=== PATIENT | male | born 1990 ===

== ENCOUNTER 2018-10-21 18:12 | Emergency (ER) | payer MEDICAID ==
[~2018-10-21] VITALS: Ht 167.6 cm; Wt 94.3 kg
[2018-10-21] MEDS ORDERED: THIAMINE 100MG TABLET PO ONE (19:00)
[2018-10-21] MEDS ORDERED: ONDANSETRON 2MG/ML, 2ML IVPush ONE (19:00)
[2018-10-21] MEDS ORDERED: SODIUM CHLORIDE FLUSH 10ML SYR IVF ONE (19:00)
[2018-10-21] MEDS ORDERED: LORazepam 2 MG/ML, 1ML IVPush ONE ×2 (19:00→20:30)
[2018-10-21 19:06] LABS: BASOPHILS # (AUTO) 0.08 x10^3/uL (0-0.1); BASOPHILS % (AUTO) 1 % (0-1); EOSINOPHILS # (AUTO) 0.03 x10^3/uL (0-0.4); EOSINOPHILS % (AUTO) 0 % (1-7); LYMPHOCYTES # (AUTO) 3.06 x10^3/uL (1-3.4); LYMPHOCYTES % (AUTO) 34 % (22-44); MD NO; MEAN CORPUSCULAR HEMOGLOBIN 28.4 pg (27.5-34.5); MEAN CORPUSCULAR HGB CONC 33.9 g/dL (33.2-36.2); MEAN CORPUSCULAR VOLUME 83.7 fL (81-97); MEAN PLATELET VOLUME 6.7 fL (7.4-10.4); MONOCYTES # (AUTO) 0.67 x10^3/uL (0.2-0.8); MONOCYTES % (AUTO) 8 % (2-9); NEUTROPHILS # (AUTO) 5.05 x10^3/uL (1.8-6.8); NEUTROPHILS % (AUTO) 57 % (42-75); PLATELET COUNT 412 x10^3/uL (130-400); RED BLOOD COUNT 6.09 x10^6/uL (4.38-5.82); RED CELL DISTRIBUTION WIDTH 14.4 % (9.4-14.8)
[2018-10-21] MEDS ORDERED: LORazepam 2 MG/ML, 1ML ONE ×2 (19:16→20:11)
[2018-10-21] MEDS ORDERED: ONDANSETRON 2MG/ML, 2ML ONE (19:16)
[2018-10-21] MEDS ORDERED: THIAMINE 100MG TABLET ONE (19:16)
[2018-10-21 19:18] LABS: ALANINE AMINOTRANSFERASE 149 U/L (12-78); ALBUMIN 4.2 g/dL (3.4-5.0); ANION GAP 7 mmol/L (5-15); CALCIUM 8.6 mg/dL (8.5-10.1); CHLORIDE 106 mmol/L (98-107); CREATININE 1.01 mg/dL (0.7-1.3)
[2018-10-21 19:20] LABS: ALKALINE PHOSPHATASE 83 U/L (45-117); BILIRUBIN,TOTAL 0.4 mg/dL (0.2-1.0); TOTAL PROTEIN 8.7 g/dL (6.4-8.2)
--- NOTE | 2018-10-21 19:23 | NUR ---
SPOKE W/ KAREN NARAYAN WHO STATES OKAY TO GIVE 2 MG IV ATIVAN IF PT AGITATED. PT EXTREMELY AGITATED AT THIS TIME.
--- NOTE | 2018-10-21 19:37 | NUR ---
PT AMBULATORY TO ROOM T1 W/ C/O ETOH ABUSE X 5 DAYS. LAST DRINK AT 1700 TODAY. PT STATES SOBER X 6 MONTHS AND HAS HX ETOH ABUSE IN THE PAST. PT C/O BEING ANXIOUS AND IS NOTABLY AGITATED AND SHAKY. MEDICATED PER DEC. MONITORS APPLIED. EKG COMPLETED.
--- NOTE | 2018-10-21 19:56 | NUR ---
PT RESTING ON GURNEY. NADN. BRIGHT.
--- NOTE | 2018-10-21 20:07 | NUR ---
PT C/O RLQ ABD PAIN TENDER TO TOUCH. PT VERBALIZES IT STARTED 20 MIN AGO AND STATES "MY ANXIETY IS REALLY BAD RIGHT NOW". EDPA NOTIFIED.
[2018-10-21] MEDS ORDERED: MAALOX/HYOSCYAMINE/LIDOCAINE 45 ML BTL ONE (20:16)
[2018-10-21] MEDS ORDERED: MAALOX/HYOSCYAMINE/LIDOCAINE 45 ML BTL PO ONE (20:30)
--- NOTE | 2018-10-21 20:37 | NUR ---
PT RESTING ON GURNEY. NADN. BRIGHT.
[2018-10-21 20:45] LABS: MICROSCOPIC NOT IND
[2018-10-21 20:52] LABS: CULTURE INDICATED? NO
--- NOTE | 2018-10-21 21:00 | NUR ---
CHART REVIEWED AND PLACED FOR RECHECK.
--- NOTE | 2018-10-21 21:01 | NUR ---
REPORT GIVEN TO LUCIA THOMASON.
--- NOTE | 2018-10-21 21:31 | NUR ---
PT UP FOR RECHECK AT THIS TIME.
[2018-10-21] MEDS ORDERED: DIAZEPAM 5 MG TABLET PO ONE (22:00)
[2018-10-21] MEDS ORDERED: DIAZEPAM 5 MG TABLET ONE (22:02)
[2018-10-21 22:47] VITALS: BP 129/78
== END 2018-10-21 23:22 | disposition home or self-care (01) ==
LOC: ED 20:33
DX: R10.13 Epigastric pain (principal); R10.31 Right lower quadrant pain; F41.1 Generalized anxiety disorder; Z87.19 Personal history of other diseases of the digestive system
CPT/HCPCS: 36415; 80053; 81003; 83690; 85025; 93005; 96374; 96375; 96376; 99284; J2060; J2405

== ENCOUNTER 2019-03-19 14:21 | Emergency (ER) | payer MEDICAID ==
[~2019-03-19] VITALS: Ht 167.6 cm; Wt 82.0 kg
[2019-03-19] MEDS ORDERED: DULO60CA7 PO (15:20)
--- NOTE | 2019-03-19 15:26 | NUR ---
PT VOIDING AT BEDSIDE AT THIS TIME. COMPLAINING OF ANXIETY. TEARFUL. MOTHER AT BEDSIDE.
[2019-03-19] MEDS ORDERED: ONDANSETRON 2MG/ML, 2ML ONE (15:27)
[2019-03-19] MEDS ORDERED: MORPHINE SULFATE 4 MG/ML, 1ML ONE ×2 (15:28→16:25)
[2019-03-19] MEDS ORDERED: ONDANSETRON 2MG/ML, 2ML IVPush ONE (15:30)
[2019-03-19] MEDS ORDERED: SODIUM CHLORIDE FLUSH 10ML SYR IVF ONE (15:30)
[2019-03-19 15:32] LABS: BASOPHILS # (AUTO) 0.07 x10^3/uL (0-0.1); BASOPHILS % (AUTO) 1 % (0-1); EOSINOPHILS # (AUTO) 0.01 x10^3/uL (0-0.4); EOSINOPHILS % (AUTO) 0 % (1-7); LYMPHOCYTES # (AUTO) 3.13 x10^3/uL (1-3.4); LYMPHOCYTES % (AUTO) 26 % (22-44); MD NO; MEAN CORPUSCULAR HEMOGLOBIN 27.7 pg (27.5-34.5); MEAN CORPUSCULAR HGB CONC 32.8 g/dL (33.2-36.2); MEAN CORPUSCULAR VOLUME 84.2 fL (81-97); MEAN PLATELET VOLUME 6.5 fL (7.4-10.4); MONOCYTES % (AUTO) 4 % (2-9); NEUTROPHILS # (AUTO) 8.42 x10^3/uL (1.8-6.8); NEUTROPHILS % (AUTO) 69 % (42-75); PLATELET COUNT 404 x10^3/uL (130-400); RED BLOOD COUNT 5.78 x10^6/uL (4.38-5.82); RED CELL DISTRIBUTION WIDTH 15.9 % (9.4-14.8)
[2019-03-19 15:41] LABS: ALANINE AMINOTRANSFERASE 72 U/L (12-78); ALBUMIN 4.2 g/dL (3.4-5.0); ANION GAP 10 mmol/L (5-15); CALCIUM 8.5 mg/dL (8.5-10.1); CHLORIDE 107 mmol/L (98-107); CREATININE 1.04 mg/dL (0.7-1.3)
[2019-03-19 15:43] LABS: ALKALINE PHOSPHATASE 84 U/L (45-117); BILIRUBIN,TOTAL 0.3 mg/dL (0.2-1.0); TOTAL PROTEIN 8.3 g/dL (6.4-8.2)
[2019-03-19] MEDS: MORPHINE SULFATE 4 MG/ML, 1ML IVPush PRN ×2 (15:49→16:26)
[2019-03-19 15:56] LABS: MICROSCOPIC NOT IND
[2019-03-19 15:59] LABS: CULTURE INDICATED? NO
--- NOTE | 2019-03-19 16:01 | NUR ---
IV IN PLACE. PT MEDICATED. CALL LIGHT IN REACH.
--- NOTE | 2019-03-19 16:22 | NUR ---
PATIENT WOULD LIKE MORE PAIN MEDICATION
--- NOTE | 2019-03-19 16:29 | NUR ---
PT COMPLAINING OF 8/10 PAIN AT THIS TIME. MEDICATED PER EMAR. WILL CONTINUE TO MONITOR.
--- NOTE | 2019-03-19 16:33 | NUR ---
ORDERED 1L BOLUS AT THIS TIME.
[2019-03-19] MEDS ORDERED: METOCLOPRAMIDE 5 MG/ML, 2ML ONE (16:44)
[2019-03-19] MEDS ORDERED: LORazepam 2 MG/ML, 1ML ONE (16:45)
--- NOTE | 2019-03-19 16:53 | NUR ---
MEDICATED PATIENT PER EMAR. PT RESTING IN BED. NO COMPLAINTS OF NAUSEA AT THIS TIME. BOLUS INFUSING. WILL CONINTUE TO MONITOR.
[2019-03-19] MEDS ORDERED: METOCLOPRAMIDE 5 MG/ML, 2ML IVPush ONE (17:00)
[2019-03-19] MEDS ORDERED: LORazepam 2 MG/ML, 1ML IVPush ONE (17:00)
[2019-03-19] MEDS ORDERED: SODIUM CHLORIDE 0.9% 1,000ML IVBOLUS ONE ×2 (17:00)
--- NOTE | 2019-03-19 17:20 | NUR ---
MD AT BEDSIDE. EXPLAINED POC TO PT AND PT'S MOTHER. PLAN TO FINISH BOLUS AND THEN DISCHARGE.
--- NOTE | 2019-03-19 17:33 | NUR ---
PT'S RA SAT 84% AT 1700. PUT ON 2L NC AND SAT WENT UP TO 97%. AT 1720 PT FOUND TO BE ON RA AND SAT WAS 97%. PT CURRENTLY ON RA WITH SATURATION OF 91%. FLUID BOLUS BEING GIVEN. WILL CONTINUE TO MONITOR.
--- NOTE | 2019-03-19 17:39 | NUR ---
BOLUS INFUSED. PT RESTING. MOTHER AT BEDSIDE.
[2019-03-19 17:44] VITALS: BP 119/81
== END 2019-03-19 17:56 | disposition home or self-care (01) ==
LOC: ED 15:07
DX: R10.11 Right upper quadrant pain (principal); I10 Essential (primary) hypertension
CPT/HCPCS: 36415; 76700; 80053; 81003; 83690; 85025; 96361; 96374; 96375; 96376; 99284; J2060; J2270; J2405; J2765; J7030

== ENCOUNTER 2019-03-20 00:06 | Inpatient (IN) | payer MEDICAID ==
[~2019-03-20] VITALS: Ht 167.6 cm; Wt 96.8 kg
[~2019-03-20 00:06] MED LIST: DULO60CA7 PO
[2019-03-20] MEDS ORDERED: ONDANSETRON 2MG/ML, 2ML IVPush ONE (01:00)
--- NOTE | 2019-03-20 01:18 | NUR ---
THIS IS 28 Y/O MALE THAT PRESENTS TO ED AGAIN TODAY WITH LOWER ABD PAIN AND SEVERE GAURDIGN AND TENDERNESS. PT REPORTS THAT IT IS DIFFICULT TO DO ANYTHING THE PAIN IS MAKING HER VERY ANXIOUS. PT DENIES ANY TRAUMA. PT REPORTS THAT THE PAIN MEDICATIONS SHE RECIEVED EARLIER DID HELP. PT CONNECTED TO MONITORS AND CALL LIGHT IN REACH. AWAITING FURTHER ORDERS.
--- NOTE | 2019-03-20 01:21 | NUR ---
EMTA AT THIS TIME ATTMEPTING PIV.
[2019-03-20] MEDS ORDERED: ONDANSETRON 2MG/ML, 2ML ONE (01:26)
[2019-03-20] MEDS ORDERED: MORPHINE SULFATE 4 MG/ML, 1ML ONE ×2 (01:26→02:29)
[2019-03-20 01:30] LABS: BASOPHILS # (AUTO) 0.07 x10^3/uL (0-0.1); BASOPHILS % (AUTO) 1 % (0-1); EOSINOPHILS # (AUTO) 0.04 x10^3/uL (0-0.4); EOSINOPHILS % (AUTO) 0 % (1-7); LYMPHOCYTES # (AUTO) 3.85 x10^3/uL (1-3.4); LYMPHOCYTES % (AUTO) 30 % (22-44); MD NO; MEAN CORPUSCULAR HEMOGLOBIN 27.9 pg (27.5-34.5); MEAN CORPUSCULAR HGB CONC 32.7 g/dL (33.2-36.2); MEAN CORPUSCULAR VOLUME 85.2 fL (81-97); MEAN PLATELET VOLUME 6.7 fL (7.4-10.4); MONOCYTES # (AUTO) 0.97 x10^3/uL (0.2-0.8); MONOCYTES % (AUTO) 8 % (2-9); NEUTROPHILS # (AUTO) 7.81 x10^3/uL (1.8-6.8); NEUTROPHILS % (AUTO) 61 % (42-75); PLATELET COUNT 376 x10^3/uL (130-400); RED BLOOD COUNT 5.55 x10^6/uL (4.38-5.82); RED CELL DISTRIBUTION WIDTH 15.9 % (9.4-14.8)
[2019-03-20 01:40] LABS: ALANINE AMINOTRANSFERASE 75 U/L (12-78); ALBUMIN 3.7 g/dL (3.4-5.0); ANION GAP 9 mmol/L (5-15); CALCIUM 7.6 mg/dL (8.5-10.1); CHLORIDE 110 mmol/L (98-107); CREATININE 1.01 mg/dL (0.7-1.3)
[2019-03-20 01:42] LABS: ALKALINE PHOSPHATASE 77 U/L (45-117); BILIRUBIN,TOTAL 0.2 mg/dL (0.2-1.0); TOTAL PROTEIN 7.6 g/dL (6.4-8.2)
[2019-03-20] MEDS: MORPHINE SULFATE 4 MG/ML, 1ML IVPush PRN ×2 (02:03→03:12)
[2019-03-20] MEDS ORDERED: OMNIPAQUE 350 MG/ML, 100ML BOTTLE ONE (02:15)
[2019-03-20] MEDS ORDERED: SODIUM CHLORIDE 0.9% 1,000ML IVBOLUS ONE (03:00)
--- NOTE | 2019-03-20 03:13 | NUR ---
PT MEDICATED FOR PAINX2, PT INFORMED THAT PAIN MEDICATION HAS TO BE GIVEN PER SCHEDULE FOR SAFETY. PT GIVEN NON PHARMCOLOGICAL PAIN RELIEF ALTERNATIVES. PT DOES NOT WANT TO TRY THEM. PT AGGRESSIVE TOWARDS RN. VSS
--- NOTE | 2019-03-20 03:18 | NUR ---
REPORT CALLED TO BROOKS MYERS
[2019-03-20 03:35] VITALS: BP 109/66
[2019-03-20] MEDS ORDERED: ONDANSETRON 2MG/ML, 2ML IVPush PRN (04:00)
[2019-03-20] MEDS: SODIUM CHLORIDE 0.9% 1,000 ML IV SCH ×2 (04:08→14:00)
[2019-03-20] MEDS: morphine SULFATE 10 MG/ML, 1ML IVPush PRN ×5 (06:58→20:08)
[2019-03-20 07:10] VITALS: BP 116/75
[2019-03-20] MEDS: PANTOPRAZOLE 40 MG IV IVPush SCH (08:51)
[2019-03-20 10:32] LABS: ALBUMIN 3.8 g/dL (3.4-5.0)
[2019-03-20 10:35] LABS: ALANINE AMINOTRANSFERASE 68 U/L (12-78); ALKALINE PHOSPHATASE 78 U/L (45-117); BILIRUBIN, DIRECT 0.2 mg/dL (0.1-0.2); BILIRUBIN,INDIRECT 0.4 mg/dL (0.0-2.0); BILIRUBIN,TOTAL 0.6 mg/dL (0.2-1.0); CHOL/HDL RATIO 2.2; CHOLESTEROL, TOTAL 120 mg/dL (140-239); HDL CHOL % 46 % (26-37); HDL CHOLESTEROL (DIRECT) 55 mg/dL (40-60); LDL CHOLESTEROL,CALCULATED 34 mg/dL (54-169); LDL/HDL RATIO 0.6 (0.5-3.0); TOTAL PROTEIN 7.5 g/dL (6.4-8.2); TRIGLYCERIDES 155 mg/dL (50-200); VLDL CHOLESTEROL 31 mg/dL (0-25)
[2019-03-20 10:37] LABS: C-REACTIVE PROTEIN, QUANT < 0.02 mg/dL (0.02-0.49)
[2019-03-20 14:00] VITALS: BP 128/71
[2019-03-20] MEDS: LORazepam 1MG TABLET PO PRN ×2 (18:05→22:15)
[2019-03-20 20:28] VITALS: BP 149/89
[2019-03-20 20:36] LABS: MICROSCOPIC NOT IND
[2019-03-20 20:39] LABS: CULTURE INDICATED? NO
[2019-03-21] MEDS: SODIUM CHLORIDE 0.9% 1,000 ML IV SCH ×4 (00:06→23:16)
[2019-03-21 01:29] VITALS: BP 115/72
[2019-03-21 05:03] LABS: BASOPHILS # (AUTO) 0.03 x10^3/uL (0-0.1); BASOPHILS % (AUTO) 0 % (0-1); EOSINOPHILS # (AUTO) 0.15 x10^3/uL (0-0.4); EOSINOPHILS % (AUTO) 2 % (1-7); LYMPHOCYTES # (AUTO) 2.15 x10^3/uL (1-3.4); LYMPHOCYTES % (AUTO) 27 % (22-44); MD NO; MEAN CORPUSCULAR HEMOGLOBIN 28.2 pg (27.5-34.5); MEAN CORPUSCULAR HGB CONC 33.6 g/dL (33.2-36.2); MEAN PLATELET VOLUME 6.8 fL (7.4-10.4); MONOCYTES % (AUTO) 10 % (2-9); NEUTROPHILS # (AUTO) 4.86 x10^3/uL (1.8-6.8); NEUTROPHILS % (AUTO) 61 % (42-75); PLATELET COUNT 301 x10^3/uL (130-400); RED BLOOD COUNT 5.07 x10^6/uL (4.38-5.82); RED CELL DISTRIBUTION WIDTH 15.4 % (9.4-14.8)
[2019-03-21 05:09] LABS: ANION GAP 7 mmol/L (5-15); CALCIUM 8.4 mg/dL (8.5-10.1); CHLORIDE 106 mmol/L (98-107)
[2019-03-21 07:06] VITALS: BP 119/78
[2019-03-21] MEDS: PANTOPRAZOLE 40 MG IV IVPush SCH (08:45)
[2019-03-21] MEDS: morphine SULFATE 10 MG/ML, 1ML IVPush PRN ×5 (09:25→23:09)
[2019-03-21 14:10] VITALS: BP 150/93
[2019-03-21] MEDS: LORazepam 1MG TABLET PO PRN ×2 (14:12→23:09)
[2019-03-21 19:31] VITALS: BP 135/87
[2019-03-22 03:21] VITALS: BP 129/72
[2019-03-22 06:52] VITALS: BP 110/71
[2019-03-22] MEDS: PANTOPRAZOLE 40 MG IV IVPush SCH (07:53)
[2019-03-22] MEDS: SODIUM CHLORIDE 0.9% 1,000 ML IV SCH (07:56)
[2019-03-22] MEDS: morphine SULFATE 10 MG/ML, 1ML IVPush PRN (10:29)
[2019-03-22] MEDS: LORazepam 1MG TABLET PO PRN (11:42)
[2019-03-22 14:08] VITALS: BP 133/85
[2019-03-22] MEDS ORDERED: OMEP20CA14 PO (16:09)
[2019-03-22] MEDS ORDERED: LACT1TAB13 PO (16:10)
== END 2019-03-22 16:33 | disposition home or self-care (01) | DRG 439 ==
LOC: ED 02:46 → EDIP 03:19 → 3NE 03:42 → DCLOUNGE 03-22 16:25
PROVIDERS: ADMIT Internal Medicine; ATTEND Internal Medicine
DX: K85.00 Idiopathic acute pancreatitis without necrosis or infection (principal); E87.2 Acidosis; F32.9 Major depressive disorder, single episode, unspecified; F41.1 Generalized anxiety disorder; F64.9 Gender identity disorder, unspecified; G89.29 Other chronic pain; I10 Essential (primary) hypertension; K29.70 Gastritis, unspecified, without bleeding; K58.0 Irritable bowel syndrome with diarrhea; M32.9 Systemic lupus erythematosus, unspecified; Z79.899 Other long term (current) drug therapy
CPT/HCPCS: 36415; 74177; 80048; 80053; 80061; 80076; 81003; 82150; 83605; 83690; 84443; 85025; 86140; 87040; 96374; 96375; 99285; G0378; J2405; Q9967; C9113; J2270; J7030

== ENCOUNTER 2019-05-08 16:57 | Emergency (ER) | payer MEDICAID ==
[~2019-05-08] VITALS: Ht 167.6 cm; Wt 98.0 kg
[~2019-05-08 16:57] MED LIST changes: +LACT1TAB13 PO; +OMEP20CA14 PO
[2019-05-08 17:01] VITALS: BP 128/83
[2019-05-08] MEDS ORDERED: DIAZEPAM 5 MG TABLET ONE (17:36)
[2019-05-08] MEDS ORDERED: KETOROLAC 30 MG/1 ML ONE (17:36)
[2019-05-08] MEDS ORDERED: DIAZEPAM 5 MG TABLET PO ONE (18:00)
[2019-05-08] MEDS ORDERED: KETOROLAC 60 MG/2 ML IM ONE (18:00)
[2019-05-08] MEDS ORDERED: KETOROLAC 30 MG/1 ML IM ONE (18:00)
--- NOTE | 2019-05-08 18:11 | NUR ---
DC EDUCATION PROVIDED, PT DEMONSTRATES UNDERSTANDING. PT AMBULATED STEADILY TO DC WITH RN. MOTHER TO TRANSPORT PT HOME
== END 2019-05-08 18:12 | disposition home or self-care (01) ==
LOC: ED 17:45
DX: S46.912A Strain of unspecified muscle, fascia and tendon at shoulder and upper arm level, left arm, initial encounter (principal); M25.512 Pain in left shoulder; F41.1 Generalized anxiety disorder; I10 Essential (primary) hypertension; X58.XXXA Exposure to other specified factors, initial encounter; Y93.89 Activity, other specified; Y92.89 Other specified places as the place of occurrence of the external cause; Y99.8 Other external cause status
CPT/HCPCS: 73030; 96372; 99283; J1885

== ENCOUNTER 2019-09-10 16:09 | Emergency (ER) | payer MEDICAID ==
[~2019-09-10] VITALS: Ht 167.6 cm; Wt 103.1 kg
[2019-09-10 16:11] VITALS: BP 143/89
--- NOTE | 2019-09-10 18:05 | NUR ---
Patient/Caregiver given discharge instructions and they have confirmed that they understand the instructions. Patient ambulatory with steady gait.
== END 2019-09-10 18:07 | disposition home or self-care (01) ==
LOC: ED 16:51
DX: M79.662 Pain in left lower leg (principal); M25.572 Pain in left ankle and joints of left foot; Z87.19 Personal history of other diseases of the digestive system
CPT/HCPCS: 99284

== ENCOUNTER 2019-09-23 18:02 | Emergency (ER) | payer MEDICAID ==
[~2019-09-23] VITALS: Ht 167.6 cm; Wt 102.2 kg
[2019-09-23] MEDS ORDERED: KETOROLAC 30 MG/1 ML IM ONE (20:00)
--- NOTE | 2019-09-23 20:00 | NUR ---
pt called to room from lobby, not in lobby
--- NOTE | 2019-09-23 20:10 | NUR ---
called pt to room from lobby, not there
--- NOTE | 2019-09-23 20:22 | NUR ---
pt left at reg desk signed ama
== END 2019-09-23 20:28 | disposition left against medical advice (07) ==
LOC: ED 20:22
DX: R51 Headache (principal); M25.511 Pain in right shoulder; M54.2 Cervicalgia
CPT/HCPCS: 99281

== ENCOUNTER 2019-10-07 14:20 | Emergency (ER) | payer MEDICAID ==
[~2019-10-07] VITALS: Ht 167.6 cm; Wt 99.2 kg
[2019-10-07 14:42] VITALS: BP 138/83
--- NOTE | 2019-10-07 15:30 | NUR ---
PIV PLACED-FROM WHICH LABS WERE DRAWN US IN LABS
[2019-10-07 15:33] LABS: MICROSCOPIC NOT IND
[2019-10-07] MEDS ORDERED: DULO30CA44 PO (15:34)
[2019-10-07] MEDS ORDERED: CEFD300C37 PO (15:34)
[2019-10-07] MEDS ORDERED: LORA10CA PO (15:35)
[2019-10-07 15:36] LABS: BASOPHILS # (AUTO) 0.06 x10^3/uL (0-0.1); BASOPHILS % (AUTO) 1 % (0-1); EOSINOPHILS % (AUTO) 1 % (1-7); LYMPHOCYTES # (AUTO) 2.86 x10^3/uL (1-3.4); LYMPHOCYTES % (AUTO) 34 % (22-44); MD NO; MEAN CORPUSCULAR HGB CONC 33.4 g/dL (33.2-36.2); MEAN PLATELET VOLUME 6.9 fL (7.4-10.4); MONOCYTES # (AUTO) 0.64 x10^3/uL (0.2-0.8); MONOCYTES % (AUTO) 8 % (2-9); NEUTROPHILS # (AUTO) 4.77 x10^3/uL (1.8-6.8); NEUTROPHILS % (AUTO) 57 % (42-75); PLATELET COUNT 270 x10^3/uL (130-400); RED BLOOD COUNT 5.79 x10^6/uL (4.38-5.82); RED CELL DISTRIBUTION WIDTH 14.8 % (9.4-14.8)
[2019-10-07 15:47] LABS: CULTURE INDICATED? NO
[2019-10-07 15:47] LABS: ALANINE AMINOTRANSFERASE 78 U/L (12-78); ALBUMIN 3.9 g/dL (3.4-5.0); ANION GAP 8 mmol/L (5-15); CALCIUM 8.4 mg/dL (8.5-10.1); CHLORIDE 107 mmol/L (98-107); CREATININE 0.89 mg/dL (0.7-1.3)
[2019-10-07 15:49] LABS: ALKALINE PHOSPHATASE 92 U/L (45-117); BILIRUBIN,TOTAL 0.5 mg/dL (0.2-1.0); TOTAL PROTEIN 8.2 g/dL (6.4-8.2)
--- NOTE | 2019-10-07 16:51 | NUR ---
With reassessment patient not found in room. Discharge Registration staff reports they saw her leave
--- NOTE | 2019-10-07 16:59 | NUR ---
Outcomes Analyst called patient to assure piv was removed. patient reports they removed piv prior to leaving (did not sign d/c paperwork.) But provider reports he reviewed testing results with patient 15-20 minutes ago so patient knowledgeable on poc
== END 2019-10-07 17:01 | disposition home or self-care (01) ==
LOC: ED 16:03
DX: R10.9 Unspecified abdominal pain (principal); M54.5 Low back pain; R11.10 Vomiting, unspecified; I10 Essential (primary) hypertension
CPT/HCPCS: 36415; 80053; 81003; 85025; 93005; 99284

== ENCOUNTER 2020-03-16 13:49 | Emergency (ER) | payer MEDICAID ==
[~2020-03-16] VITALS: Ht 167.6 cm; Wt 96.8 kg
[~2020-03-16 13:49] MED LIST changes: +CEFD300C37 PO; +DULO30CA44 PO; +LORA10CA PO; -OMEP20CA14 PO; +OMEP20CA20 PO
--- NOTE | 2020-03-16 14:37 | NUR ---
PT PRESENTING TO ER FOR SWOLLEN, RED, PAINFUL RIGHT ANKLE, STS STARTING LAST 24 HOURS. NO INJURY NOTED. IN NOV ADMITTED FOR PE BUT NOT SENT HOME ON ANTICOAGULANT MEDS PER PT. VSS AT THIS TIME. CALL LIGHT WITHIN REACH. AWAITING MD ASSESSMENT AND ORDERS
[2020-03-16] MEDS ORDERED: KETOROLAC 60 MG/2 ML ONE (15:23)
[2020-03-16] MEDS ORDERED: KETOROLAC 30 MG/1 ML IM ONE (15:30)
[2020-03-16 15:54] LABS: BASOPHILS # (AUTO) 0.04 x10^3/uL (0-0.1); BASOPHILS % (AUTO) 0 % (0-1); EOSINOPHILS # (AUTO) 0.41 x10^3/uL (0-0.4); EOSINOPHILS % (AUTO) 4 % (1-7); LYMPHOCYTES # (AUTO) 2.55 x10^3/uL (1-3.4); LYMPHOCYTES % (AUTO) 25 % (22-44); MD NO; MEAN CORPUSCULAR HEMOGLOBIN 26.6 pg (27.5-34.5); MEAN CORPUSCULAR HGB CONC 32.6 g/dL (33.2-36.2); MEAN CORPUSCULAR VOLUME 81.7 fL (81-97); MONOCYTES # (AUTO) 0.87 x10^3/uL (0.2-0.8); MONOCYTES % (AUTO) 9 % (2-9); NEUTROPHILS # (AUTO) 6.32 x10^3/uL (1.8-6.8); NEUTROPHILS % (AUTO) 62 % (42-75); PLATELET COUNT 350 x10^3/uL (130-400); RED BLOOD COUNT 5.63 x10^6/uL (4.38-5.82); RED CELL DISTRIBUTION WIDTH 14.4 % (9.4-14.8)
[2020-03-16] MEDS ORDERED: HYDROcodone/APAP 5/325 TABLET ONE (16:00)
[2020-03-16] MEDS ORDERED: HYDROcodone/APAP 5/325 TABLET PO ONE (16:01)
[2020-03-16 16:04] LABS: ALBUMIN 3.5 g/dL (3.4-5.0); ANION GAP 5 mmol/L (5-15); CALCIUM 8.8 mg/dL (8.5-10.1); CHLORIDE 105 mmol/L (98-107); CREATININE 0.94 mg/dL (0.7-1.3)
--- NOTE | 2020-03-16 16:08 | NUR ---
PT STS PAIN NOT HELPED MUCH AFTER MD KIRA UPDATED. ADDITIONAL MEDS GIVEN. PT STS MOM IN CAR TO TAKE PT HOME UPON DC. CALL LIGHT WITHIN REACH. AWAITING LAB RESULTS AND DISPO AT THIS TIME
[2020-03-16 16:12] VITALS: BP 114/83
--- NOTE | 2020-03-16 16:13 | NUR ---
ALL RESULTS BACK AT THIS TIME, CHART UP FOR RECHECK
--- NOTE | 2020-03-16 16:16 | NUR ---
TO BEDSIDE FOR RECHECK
== END 2020-03-16 16:37 | disposition home or self-care (01) ==
LOC: ED 16:30
DX: L03.115 Cellulitis of right lower limb (principal); Z87.891 Personal history of nicotine dependence
CPT/HCPCS: 36415; 73610; 80048; 82040; 84550; 85025; 93971; 96372; 99285; J1885

== ENCOUNTER 2020-03-23 17:07 | Emergency (ER) | payer MEDICAID ==
[~2020-03-23] VITALS: Ht 167.6 cm; Wt 93.0 kg
[2020-03-23 17:27] VITALS: BP 129/70
--- NOTE | 2020-03-23 17:40 | NUR ---
FIRST CONTACT WITH PT. PT HERE LAST SAT FOR R ANKLE CELLULITIS AND UNRESOLVED. PT'S AOX4. RESPS EVEN AND UNLABORED.
[2020-03-23] MEDS ORDERED: KETOROLAC 30 MG/1 ML IM ONE (18:30)
[2020-03-23] MEDS ORDERED: KETOROLAC 30 MG/1 ML ONE (18:44)
--- NOTE | 2020-03-23 18:50 | NUR ---
PT MEDICATED PER EMAR. PT TOLERATED WELL.
--- NOTE | 2020-03-23 19:08 | NUR ---
Patient given discharge instructions and they have confirmed that they understand the instructions. Patient ambulatory with steady gait.
== END 2020-03-23 19:09 | disposition home or self-care (01) ==
LOC: ED 17:37
DX: L03.115 Cellulitis of right lower limb (principal); M25.571 Pain in right ankle and joints of right foot; M25.471 Effusion, right ankle; I10 Essential (primary) hypertension; Z87.891 Personal history of nicotine dependence
CPT/HCPCS: 96372; 99283; J1885

== ENCOUNTER 2020-09-10 19:27 | Emergency (ER) | payer MEDICAID ==
[~2020-09-10] VITALS: Ht 167.6 cm; Wt 91.2 kg
--- NOTE | 2020-09-10 19:56 | NUR ---
PT BIB POV. PT REPORTS CHEST PAIN X 24 HOURS, "I FEEL LIKE I PULLED A MUSCLE IN MY CHEST". INCREASED PAIN WITH MOVEMENT OF L ARM. PT DENIES INJURY/SOB/PRODUCTIVE COUGH. PT RESTING GURNEY, NO NEEDS AT THIS TIME, NAD NOTED, WILL CONTINUE TO MONITOR.
[2020-09-10] MEDS ORDERED: KETOROLAC 30 MG/1 ML IM ONE ×2 (20:00→20:30)
[2020-09-10] MEDS ORDERED: CYCLOBENZAPRINE 10 MG TABLET PO ONE (20:00)
[2020-09-10] MEDS ORDERED: KETOROLAC 30 MG/1 ML ONE (20:01)
[2020-09-10] MEDS ORDERED: CYCLOBENZAPRINE 10 MG TABLET ONE (20:01)
[2020-09-10 20:55] LABS: BASOPHILS % (AUTO) 1 % (0-1); EOSINOPHILS % (AUTO) 1 % (1-7); LYMPHOCYTES % (AUTO) 30 % (22-44); MEAN CORPUSCULAR HEMOGLOBIN 26.7 pg (27.5-34.5); MEAN CORPUSCULAR HGB CONC 32.9 g/dL (33.2-36.2); MEAN PLATELET VOLUME 6.8 fL (7.4-10.4); MONOCYTES % (AUTO) 10 % (2-9); NEUTROPHILS % (AUTO) 58 % (42-75); PLATELET COUNT 393 x10^3/uL (130-400); RED BLOOD COUNT 4.62 x10^6/uL (4.38-5.82); RED CELL DISTRIBUTION WIDTH 15.2 % (9.4-14.8)
[2020-09-10 21:00] LABS: ALBUMIN 3.6 g/dL (3.4-5.0); ANION GAP 4 mmol/L (5-15); CALCIUM 8.7 mg/dL (8.5-10.1); CHLORIDE 112 mmol/L (98-107); CREATININE 0.94 mg/dL (0.7-1.3)
[2020-09-10 21:04] LABS: TROPONIN I < 0.015 ng/mL (0.000-0.045)
[2020-09-10 21:20] LABS: MD NO
[2020-09-10 21:55] VITALS: BP 113/72
== END 2020-09-10 21:58 | disposition home or self-care (01) ==
LOC: ED 20:57
DX: N18.9 Chronic kidney disease, unspecified (principal); D64.9 Anemia, unspecified; R25.2 Cramp and spasm; I10 Essential (primary) hypertension; R00.0 Tachycardia, unspecified; R07.89 Other chest pain
CPT/HCPCS: 36415; 71046; 80048; 82040; 84484; 85025; 85379; 93005; 96372; 99285; J1885

== ENCOUNTER 2020-10-23 15:42 | Emergency (ER) | payer MEDICAID ==
[~2020-10-23] VITALS: Ht 167.6 cm; Wt 87.3 kg
--- NOTE | 2020-10-23 16:20 | NUR ---
This RN visited with pt.'s mom outside of pt.'s room. Pt.'s mom states pt. has been in and out of rehab centers and has recently been binge drinking again. Pt.'s mom wants her to get into rehab center again. Pt.'s mom at bedside with pt. now. Pt requesting pain meds, this RN informing provider.
--- NOTE | 2020-10-23 16:27 | NUR ---
Informing provider and pt. and pt.'s mothers requests. Jenna reports she will go talk to them.
[2020-10-23] MEDS ORDERED: KETOROLAC 30 MG/1 ML ONE (16:28)
[2020-10-23] MEDS ORDERED: KETOROLAC 30 MG/1 ML IM ONE (16:30)
--- NOTE | 2020-10-23 16:31 | NUR ---
Administering Toradol shot
[2020-10-23 16:46] LABS: BASOPHILS % (AUTO) 1 % (0-1); EOSINOPHILS % (AUTO) 1 % (1-7); LYMPHOCYTES % (AUTO) 27 % (22-44); MEAN CORPUSCULAR HEMOGLOBIN 25.8 pg (27.5-34.5); MEAN CORPUSCULAR HGB CONC 32.8 g/dL (33.2-36.2); MEAN PLATELET VOLUME 6.3 fL (7.4-10.4); MONOCYTES % (AUTO) 8 % (2-9); NEUTROPHILS % (AUTO) 63 % (42-75); PLATELET COUNT 453 x10^3/uL (130-400); RED BLOOD COUNT 5.97 x10^6/uL (4.38-5.82); RED CELL DISTRIBUTION WIDTH 16.3 % (9.4-14.8)
[2020-10-23 16:48] LABS: MICROSCOPIC NOT IND
[2020-10-23 16:54] LABS: MD NO
--- NOTE | 2020-10-23 16:54 | NUR ---
RN at bedside, pt. resting comfortably, denies chest pain. Family at bedside.
[2020-10-23 16:57] LABS: ALANINE AMINOTRANSFERASE 53 U/L (12-78); ALBUMIN 4.4 g/dL (3.4-5.0); ANION GAP 7 mmol/L (5-15); CALCIUM 9.9 mg/dL (8.5-10.1); CHLORIDE 110 mmol/L (98-107); CREATININE 1.05 mg/dL (0.7-1.3)
--- NOTE | 2020-10-23 17:00 | NUR ---
Pt at imaging.
[2020-10-23 17:05] LABS: AMPHETAMINE SCREEN, URINE Negative (Negative); BARBITURATE SCREEN, URINE Negative (Negative); BENZODIAZEPINE SCREEN, URINE Negative (Negative); CANNABINOID SCREEN, URINE Negative (Negative); COCAINE SCREEN, URINE Negative (Negative); METHADONE SCREEN, URINE Negative (Negative); OPIATE SCREEN, URINE Negative (Negative)
--- NOTE | 2020-10-23 17:08 | NUR ---
Pt back from imaging
[2020-10-23 17:10] LABS: ALKALINE PHOSPHATASE 128 U/L (45-117); BILIRUBIN,TOTAL 0.3 mg/dL (0.2-1.0); TOTAL PROTEIN 8.7 g/dL (6.4-8.2)
--- NOTE | 2020-10-23 18:20 | NUR ---
RN at bedside, provider at bedside, pt.'s mom at bedside. Discussed plan with pt.
[2020-10-23] MEDS ORDERED: ACETAMINOPHEN 325 MG TABLET ONE (18:29)
[2020-10-23] MEDS ORDERED: ACETAMINOPHEN 325 MG TABLET PO ONE (18:30)
--- NOTE | 2020-10-23 18:35 | NUR ---
Administered Tylenol. Provided pt. snacks. at bedside.
--- NOTE | 2020-10-23 18:54 | NUR ---
Pt ate some crackers and a roll, drank some apple juice. Reports feeling a little better now. Informed provider of pt.'s HR 115.
--- NOTE | 2020-10-23 18:59 | NUR ---
Report to Mina
--- NOTE | 2020-10-23 18:59 | NUR ---
REPORT FROM YANELIS MYERS.
[2020-10-23 19:10] VITALS: BP 132/86
== END 2020-10-23 19:11 | disposition home or self-care (01) ==
LOC: ED 17:17
DX: N23 Unspecified renal colic (principal); F10.129 Alcohol abuse with intoxication, unspecified; I12.9 Hypertensive chronic kidney disease with stage 1 through stage 4 chronic kidney disease, or unspecified chronic kidney disease; N18.9 Chronic kidney disease, unspecified; Y90.0 Blood alcohol level of less than 20 mg/100 ml
CPT/HCPCS: 36415; 74176; 80053; 80307; 80320; 81003; 83690; 85025; 96372; 99284; J1885; G0480

== ENCOUNTER 2021-05-09 18:32 | Emergency (ER) | payer MEDICAID ==
[~2021-05-09] VITALS: Ht 167.6 cm; Wt 94.9 kg
[2021-05-09 18:37] VITALS: BP 116/66
--- NOTE | 2021-05-09 20:09 | NUR ---
PT GOING TO US.
== END 2021-05-09 21:08 | disposition home or self-care (01) ==
LOC: ED 19:00
DX: L03.116 Cellulitis of left lower limb (principal); I12.9 Hypertensive chronic kidney disease with stage 1 through stage 4 chronic kidney disease, or unspecified chronic kidney disease; N18.9 Chronic kidney disease, unspecified
CPT/HCPCS: 99284